=== PATIENT | female | born 1945 ===

== ENCOUNTER → 2022-07-18 15:36 | Outpatient (BNVA) | payer MEDICARE, SELFPAY | PROVIDERS: Visit Provider Podiatrist Foot & Ankle Surgery | DX: M25.571 Pain in right ankle and joints of right foot (principal); M10.9 Gout, unspecified | CPT/HCPCS: 73610; 80503; 99204 ==

== ENCOUNTER → 2022-07-24 08:17 | Outpatient (BNVA) | payer MEDICARE, SELFPAY | PROVIDERS: Visit Provider Podiatrist Foot & Ankle Surgery | DX: M25.571 Pain in right ankle and joints of right foot (principal) | CPT/HCPCS: 87070; 87075; 87102; 87205; 87206 ==